=== PATIENT | female | born 1985 | race American Indian/Alaskan Native ===

== ENCOUNTER 2018-10-29 14:31 | Emergency (ER) | payer BC, MEDICAID ==
[2018-10-29 14:42] VITALS: BP 134/94
--- NOTE | 2018-10-29 15:08 | EDM.PDOC ---
ED HPI GENERAL MEDICAL PROBLEM - General Chief Complaint: Upper Extremity Injury/Pain Stated Complaint: FELL AND HURT 3 FINGERS Time Seen by Provider: 10/29/18 15:06 Source of Information: Reports: Patient History Limitations: Reports: No Limitations - History of Present Illness INITIAL COMMENTS - FREE TEXT/NARRATIVE: fell this am. 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 ED EXAM, GENERAL - Physical Exam Exam: See Below Exam Limited By: No Limitations General Appearance: Alert, WD/WN, No Apparent Distress Ears: Hearing Grossly Normal Throat/Mouth: Normal Voice, No Airway Compromise Head: Atraumatic Neck: Non-Tender, Full Range of Motion Respiratory/Chest: No Respiratory Distress Cardiovascular: Regular Rate, Rhythm GI/Abdominal: Soft, Non-Tender Extremities: Other (left hand swollen knuckles, 3rd>, NV wnl) Neurological: Alert, Oriented, Normal Cognition, Normal Gait, No Motor/Sensory Deficits Psychiatric: Normal Affect, Normal Mood Skin Exam: Warm, Dry, Normal Color Lymphatic: No Adenopathy Course - Vital Signs Last Recorded V/S: Last Vital Signs Temp 36.4 C 10/29/18 14:38 Pulse 108 H 10/29/18 14:38 Resp 18 10/29/18 14:38 BP 134/94 H 10/29/18 14:38 Pulse Ox 100 10/29/18 14:38 - Orders/Labs/Meds Orders: Active Orders 24 hr Category Date Time Status Hand Comp Min 3V Lt [CR] Urgent Exams 10/29/18 15:05 Taken - Re-Assessments/Exams Free Text/Narrative Re-Assessment/Exam: 10/29/18 15:46 results discussed with pt. Departure - Departure Time of Disposition: 15:46 Disposition: Home, Self-Care 01 Condition: Good Clinical Impression: Hand contusion Qualifiers: Encounter type: initial encounter Laterality: left Qualified Code(s): S60.222A - Contusion of left hand, initial encounter - Discharge Information Instructions: Contusion, [id number] Forms: ED Department Discharge Additional Instructions: 1) ice to swelling 2) try tylenol or motrin as needed for pain - My Orders Last 24 Hours: My Active Orders 10/29/18 15:05 Hand Comp Min 3V Lt [CR] Urgent - Assessment/Plan Last 24 Hours: My Active Orders 10/29/18 15:05 Hand Comp Min 3V Lt [CR] Urgent
== END 2018-10-29 15:50 | disposition home or self-care (01) ==
LOC: DL.ED 14:31
DX: S60.222A Contusion of left hand, initial encounter (principal); F17.210 Nicotine dependence, cigarettes, uncomplicated; I10 Essential (primary) hypertension; Z79.899 Other long term (current) drug therapy; W18.30XA Fall on same level, unspecified, initial encounter
CPT/HCPCS: 73130-LT; 99283-25

== ENCOUNTER 2019-05-20 18:47 | Emergency (ER) | payer MEDICAID ==
--- NOTE | 2019-05-20 19:16 | EDM.PDOC ---
ED HPI GENERAL MEDICAL PROBLEM - General Chief Complaint: Upper Extremity Injury/Pain Stated Complaint: RIGHT WRIST HURTS TO WRITE, PAIN. PER PT Time Seen by Provider: 05/20/19 19:15 Source of Information: Reports: Patient History Limitations: Reports: No Limitations - History of Present Illness INITIAL COMMENTS - FREE TEXT/NARRATIVE: fell onto it few days ago still hurts. Treatments FISCAL ANALYST: Reports: Other (see below) Other Treatments FISCAL ANALYST: Ibuprofen 800 mg x 4 today. 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 Musculoskeletal History: Reports: Fracture Neurological History: Reports: None Psychiatric History: Reports: None Endocrine/Metabolic History: Reports: None Hematologic History: Reports: None Immunologic History: Reports: None Oncologic (Cancer) History: Reports: None Dermatologic History: Reports: None - Infectious Disease History Infectious Disease History: Reports: Chicken Pox - Past Surgical History GI Surgical History: Reports: Cholecystectomy Female Surgical History: Reports: Tubal Ligation Social & Family History - Family History Family Medical History: Noncontributory - Tobacco Use Smoking Status *Q: Current Some Day Smoker Years of Tobacco use: 2 Packs/Tins Daily: 1 Second Hand Smoke Exposure: No - Caffeine Use Caffeine Use: Reports: Energy Drinks, Soda - Recreational Drug Use Recreational Drug Use: No Review of Systems - Review of Systems Review Of Systems: ROS reveals no pertinent complaints other than HPI. ED EXAM, GENERAL - Physical Exam Exam: See Below Exam Limited By: No Limitations General Appearance: Alert, WD/WN, Mild Distress, Other (pain) Ears: Hearing Grossly Normal Throat/Mouth: Normal Voice, No Airway Compromise Head: Atraumatic Neck: Non-Tender, Full Range of Motion Respiratory/Chest: No Respiratory Distress Cardiovascular: Regular Rate, Rhythm GI/Abdominal: Soft, Non-Tender Extremities: Other (right wrist swollen tender R/P, NV wnl, no gross D/D) Neurological: Alert, Oriented, Normal Cognition, Normal Gait, No Motor/Sensory Deficits Psychiatric: Tearful Skin Exam: Warm, Dry, Normal Color Lymphatic: No Adenopathy Course - Vital Signs Last Recorded V/S: Last Vital Signs Temp 36.6 C 05/20/19 18:53 Pulse 82 05/20/19 18:53 Resp 18 05/20/19 18:53 BP 140/99 H 05/20/19 18:53 Pulse Ox 100 05/20/19 18:53 - Orders/Labs/Meds Meds: Medications Discontinued Medications Generic Name Dose Route Start Last Admin Trade Name Freq PRN Reason Stop Dose Admin Tramadol HCl 50 mg 05/20/19 19:37 05/20/19 19:41 Ultram PO 05/20/19 19:38 50 mg ONETIME ONE Administration - Re-Assessments/Exams Free Text/Narrative Re-Assessment/Exam: 05/20/19 19:52 VELCRO WRIST BRACE APPLIED 05/20/19 19:57 results discussed with pt Departure - Departure Time of Disposition: 19:57 Disposition: Home, Self-Care 01 Condition: Good Clinical Impression: Contusion of wrist, right Qualifiers: Encounter type: initial encounter Qualified Code(s): S60.211A - Contusion of right wrist, initial encounter - Discharge Information Instructions: Contusion, [id number] Forms: ED Department Discharge Additional Instructions: 1) wear brace for comfort] 2) ice intermittently for swelling 3) elevate as much as possible 4) see clinic Wednesday for possible MRI SCAN rx givne; tramadol 50mg bid prn x 3
[2019-05-20] MEDS ORDERED: traMADol 50 MG Tab PO ONE (19:37)
[2019-05-20 20:11] VITALS: BP 152/94; PULSE 74
== END 2019-05-20 20:10 | disposition home or self-care (01) ==
LOC: DL.ED 18:47
DX: S60.211A Contusion of right wrist, initial encounter (principal); I10 Essential (primary) hypertension; F17.210 Nicotine dependence, cigarettes, uncomplicated; Z79.899 Other long term (current) drug therapy; W01.0XXA Fall on same level from slipping, tripping and stumbling without subsequent striking against object, initial encounter
CPT/HCPCS: 73110; 99283; A9270

== ENCOUNTER 2021-04-29 15:05 | Emergency (ER) | payer MEDICAID ==
[2021-04-29 16:01] VITALS: BP 157/97; PULSE 80
== END 2021-04-29 16:41 | disposition left against medical advice (07) ==
LOC: DL.ED 15:05
DX: R05 Cough (principal); Z53.21 Procedure and treatment not carried out due to patient leaving prior to being seen by health care provider; Z20.822 Contact with and (suspected) exposure to COVID-19
CPT/HCPCS: U0002

== ENCOUNTER 2022-05-21 18:45 | Emergency (ER) | payer MEDICAID ==
[2022-05-21 18:58] VITALS: BP 173/106; PULSE 80
[2022-05-21] MEDS ORDERED: Sodium Chloride 0.9% 10 ML Syringe FLUSH PRN (18:58)
[2022-05-21] MEDS ORDERED: Ondansetron 4 MG/2 ML SDV IVPUSH ONE (19:23)
[2022-05-21] MEDS ORDERED: Ketorolac 30 MG/ML SDV IVPUSH ONE (19:23)
[2022-05-21 19:50] LABS: ANION GAP 10.8 mEq/L (7-13); CHLORIDE,CL 101 mmol/L (98-107); SODIUM,NA 138 mmol/L (136-145)
[2022-05-21 19:59] LABS: ESTIMATED GFR 117 mL/min (>=60)
== END 2022-05-21 20:34 | disposition home or self-care (01) ==
LOC: DL.ED 18:45
DX: F41.9 Anxiety disorder, unspecified (principal); Z20.822 Contact with and (suspected) exposure to COVID-19
CPT/HCPCS: 36415; 80053; 81001; 81025; 83690; 83735; 84484; 85025; 86140; 87086; 93005; 96374; 96375; 99285-25; J1885; J2405; J3490; U0002

== ENCOUNTER 2023-08-15 22:06 | Emergency (ER) | payer MEDICAID ==
[2023-08-15 23:11] VITALS: BP 144/78; PULSE 68
[2023-08-16] MEDS ORDERED: Ketorolac 30 MG/ML SDV IM ONE (00:18)
== END 2023-08-16 00:50 | disposition home or self-care (01) ==
LOC: DL.ED 22:06
DX: S83.92XA Sprain of unspecified site of left knee, initial encounter (principal); I10 Essential (primary) hypertension; Z87.891 Personal history of nicotine dependence; W00.9XXA Unspecified fall due to ice and snow, initial encounter
CPT/HCPCS: 73562-LT; 96372; 99282; 99283; J1885